=== PATIENT | female | born 1970 | race Caucasian/White ===

== ENCOUNTER 2024-12-31 23:46 | Observation (INO) | payer MEDICARE, OTHER ==
[2025-01-01] MEDS ORDERED: Acetaminophen 325 MG TAB PO PRN (00:11)
[2025-01-01] MEDS ORDERED: Glucagon 1 MG/ML KIT IM PRN (00:11)
[2025-01-01] MEDS ORDERED: Ondansetron PF 4 MG/2 ML Vial IVP PRN (00:11)
[2025-01-01] MEDS ORDERED: Dextrose 50% Abboject 50 ML SYRINGE SLOW IVP PRN (00:11)
[2025-01-01 00:35] VITALS: BMI 21.2
[2025-01-01] MEDS: Famotidine/PF 20 mg/2ml Vial SLOW IVP SCH (00:58)
[2025-01-01 01:21] LABS: Troponin I Less than 0.010 ng/mL (< 0.028)
[2025-01-01 04:43] LABS: #Basophils Less than 0.03 10x3/uL (0.0-0.2); #Eosinophils 0.04 10x3/uL (0.0-0.5); #Monocytes 0.49 10x3/uL (0.0-1.1); #Neutrophils 3.69 10x3/uL (1.5-8.4); %Basophils 0.3 % (0.0-2.0); %Eosinophils 0.7 % (0.0-6.0); %Lymphocytes 27.7 % (18.0-47.0); %Monocytes 8.3 % (0.0-10.0); %Neutrophils 62.7 % (40.0-75.0); Hematocrit 34.6 % (34.9-44.5); Hemoglobin 11.4 g/dL (12.0-15.5); Mean Corpuscular Hemoglobin 29.3 pg (27.0-33.0); Mean Corpuscular Volume 88.9 fL (81.6-98.3); Platelet Count 295 10x3/uL (150-450); Red Blood Cell (RBC) Count 3.89 10x6/uL (3.90-5.03); White Blood Cell (WBC) Count 5.89 10x3/uL (3.5-10.5)
[2025-01-01 05:07] LABS: Anion Gap 14 mmol/L (10-20); BUN (Urea Nitrogen) 26 mg/dL (9.8-20.1); Calc. Creatinine Clearance 75 mL/min (70-130); Calcium 7.7 mg/dL (7.8-10.44); Carbon Dioxide 18 mmol/L (22-29); Chloride 108 mmol/L (98-107); Potassium 4.7 mmol/L (3.5-5.1); Sodium 135 mmol/L (136-145)
[2025-01-01 05:19] LABS: Troponin I Less than 0.010 ng/mL (< 0.028)
[2025-01-01 05:58] LABS: Glucose 412 mg/dL (70-105)
[2025-01-01] MEDS: Lantus 1000 UNITS/10 ML VIAL SC SCH (06:20)
[2025-01-01] MEDS: Enoxaparin 40 MG (0.4 mL) SYRINGE SC SCH (08:30)
[2025-01-01] MEDS: Aspirin Chewable 81 MG TAB PO SCH (08:30)
[2025-01-01 12:53] VITALS: BMI 21.2
[2025-01-01 16:54] VITALS: BP 111/58; TEMP 97.6
[2025-01-02] MEDS ORDERED: Lantus 1000 UNITS/10 ML VIAL SC SCH (09:00)
== END 2025-01-01 20:36 | disposition home or self-care (01) ==
LOC: UNDOADMOB 23:46 → CSHTELE 23:46
PROVIDERS: ADMIT Family Medicine; ATTEND Family Medicine
DX: R07.89 Other chest pain (principal); E10.9 Type 1 diabetes mellitus without complications; E87.6 Hypokalemia; R63.4 Abnormal weight loss; R01.1 Cardiac murmur, unspecified
CPT/HCPCS: 80048; 82962; 84443; 84484 ×2; 85025; 93306; 94760; 96372; 96374; 96376; G0378; J1650; J1815 ×2; J7030; J7070; 36415; 36416